=== PATIENT | male | born 1975 | race Caucasian/White ===

== ENCOUNTER → 2018-11-06 | Outpatient (CLI) | payer OTHER | LOC: M OUTALCOH 08:42 | PROVIDERS: ATTEND Psychiatry & Neurology Psychiatry | DX: Z03.89 Encounter for observation for other suspected diseases and conditions ruled out (principal) ==

== ENCOUNTER 2018-11-13 09:52 | Outpatient (RCR) | payer OTHER | END 2018-11-17 | LOC: M OUTALCOH 09:52 | PROVIDERS: ATTEND Psychiatry & Neurology Psychiatry | DX: Z03.89 Encounter for observation for other suspected diseases and conditions ruled out (principal) ==

== ENCOUNTER 2018-12-31 02:15 | Emergency (ER) | payer BC, OTHER ==
[~2018-12-31] VITALS: Ht 188 cm; Wt 110.0 kg
[2018-12-31] MEDS ORDERED: TETANUS/DIPHTHERIA TOX ADSORB ADULT 0.5ML SYR/VIAL (90714) IM ONE (03:00)
--- NOTE | 2018-12-31 03:24 | REPVR ---
EXAM: CT Head Without Contrast EXAM DATE/TIME: 12/31/2018 2:34 AM CLINICAL HISTORY: 43 years old, male; Injury or trauma; Fall; Additional info: Loc/fall/head lac TECHNIQUE: Imaging protocol: Axial computed tomography images of the head without contrast. Radiation optimization: All CT scans at this facility use at least one of these dose optimization techniques: automated exposure control; mA and/or kV adjustment per patient size (includes targeted exams where dose is matched to clinical indication); or iterative reconstruction. COMPARISON: No relevant prior studies available. FINDINGS: Brain: Normal. No hemorrhage. Unremarkable white matter. No mass effect. Ventricles: Normal. No ventriculomegaly. Bones/joints: Unremarkable. No acute fracture. Sinuses: Left ethmoid sinus mucosal thickening. Mastoid air cells: Visualized mastoid air cells are well aerated. No mastoid effusion. Soft tissues: Unremarkable. IMPRESSION: 1. Mild left ethmoid sinus disease. 2. Otherwise negative noncontrast head CT. Electronically signed by: Manjit Sanchez On 12/31/2018 03:24:23 AM
[2018-12-31] MEDS ORDERED: LIDOCAINE W/EPINEPHRINE 1% 20ML VIAL As Ordered ONE (04:40)
[2018-12-31] MEDS ORDERED: LIDOCAINE W/EPINEPHRINE 1% 20ML VIAL SC ONE (04:45)
[2018-12-31 05:14] VITALS: BP 138/80
== END 2018-12-31 05:17 | disposition home or self-care (01) ==
LOC: M ED 02:15
DX: S01.01XA Laceration without foreign body of scalp, initial encounter (principal); W01.0XXA Fall on same level from slipping, tripping and stumbling without subsequent striking against object, initial encounter; Y92.012 Bathroom of single-family (private) house as the place of occurrence of the external cause

== ENCOUNTER 2020-06-11 01:52 | Inpatient (IN) | payer OTHER, BC ==
[~2020-06-11] VITALS: Ht 188 cm; Wt 108.2 kg
[2020-06-11 03:14] LABS: HEMATOCRIT 43.7 % (42.0-52.0); HEMOGLOBIN 15.4 g/dl (13.5-17.5); MEAN CORPUSCULAR HEMOGLOBIN 30.7 pg (27.0-33.0); MEAN CORPUSCULAR HGB CONC 35.2 g/dl (32.0-36.5); MEAN CORPUSCULAR VOLUME 87.2 fl (80.0-96.0); PLATELET COUNT, AUTOMATED 207 10^3/uL (150-450); RED BLOOD COUNT 5.01 10^6/uL (4.30-6.10); WHITE BLOOD COUNT 5.9 10^3/uL (4.0-10.0)
[2020-06-11 03:44] LABS: ACETAMINOPHEN LEVEL < 2.0 UG/ML (10.0-30.0); ALBUMIN 3.8 GM/DL (3.2-5.2); ALT/SGPT 35 U/L (12-78); BILIRUBIN,DIRECT 0.1 MG/DL (0.0-0.2); BILIRUBIN,TOTAL 0.5 MG/DL (0.2-1.0); BLOOD UREA NITROGEN 10 MG/DL (7-18); CALCIUM LEVEL 8.2 MG/DL (8.5-10.1); CARBON DIOXIDE LEVEL 25 MEQ/L (21-32); CHLORIDE LEVEL 104 MEQ/L (98-107); CREATININE FOR GFR 0.98 MG/DL (0.70-1.30); ETHYL ALCOHOL (ETHANOL) 0.185 % (0.000-0.010); GLOMERULAR FILTRATION RATE > 60.0 (>60); GLUCOSE, FASTING 93 MG/DL (70-100); POTASSIUM SERUM 3.9 MEQ/L (3.5-5.1); SALICYLATE LEVEL < 1.7 MG/DL (5.0-30.0); SODIUM LEVEL 138 MEQ/L (136-145); TOTAL PROTEIN 6.9 GM/DL (6.4-8.2)
[2020-06-11 03:46] LABS: AMPHETAMINES LEVEL URINE NEGATIVE (NEGATIVE); BARBITURATES URINE NEGATIVE (NEGATIVE); BENZODIAZEPINES URINE NEGATIVE (NEGATIVE); CANNABINOIDS URINE NEGATIVE (NEGATIVE); COCAINE METABOLITE URINE NEGATIVE (NEGATIVE); METHADONE URINE NEGATIVE (NEGATIVE); OPIATES URINE NEGATIVE (NEGATIVE); PHENCYCLIDINE URINE NEGATIVE (NEGATIVE)
[2020-06-11] MEDS: THIAMINE 100 MG TAB PO SCH ×2 (09:00→21:00)
[2020-06-11] MEDS ORDERED: LORazepam 2 MG TAB PO PRN (13:45)
[2020-06-11] MEDS ORDERED: MOM 30ML SUSPENSION UDC PO PRN (13:45)
[2020-06-11] MEDS ORDERED: OLANZapine ORAL DISINTEGRATING TAB 5MG PO PRN (13:45)
[2020-06-11] MEDS ORDERED: ACETAMINOPHEN TAB 650MG DOSE (2X325MG) PO PRN (13:45)
[2020-06-11] MEDS ORDERED: MAALOX 30 ML SUSP *UDC PO PRN (13:45)
[2020-06-11] MEDS ORDERED: LORazepam 1 MG TAB PO STA (13:51)
[2020-06-11 16:35] VITALS: BP 154/97
[2020-06-11 16:41] VITALS: BP 154/97
[2020-06-11] MEDS: FOLIC ACID 1 MG TAB PO SCH (17:10)
[2020-06-11] MEDS: MULTIVITAMINS/MINERALS THERAP 1 TAB PO SCH (17:10)
[2020-06-12 01:00] VITALS: BP 145/92
[2020-06-12 06:41] VITALS: BP 148/96
[2020-06-12 06:43] VITALS: BP 148/96
[2020-06-12] MEDS: THIAMINE 100 MG TAB PO SCH ×2 (09:00→22:28)
[2020-06-12] MEDS: FOLIC ACID 1 MG TAB PO SCH (09:00)
[2020-06-12] MEDS: MULTIVITAMINS/MINERALS THERAP 1 TAB PO SCH (09:00)
[2020-06-12 17:35] VITALS: BP 158/90
[2020-06-12 22:53] VITALS: BP 140/82
[2020-06-13 06:30] VITALS: BP 146/90
[2020-06-13] MEDS: FOLIC ACID 1 MG TAB PO SCH (09:00)
[2020-06-13] MEDS: THIAMINE 100 MG TAB PO SCH (09:00)
[2020-06-13] MEDS: MULTIVITAMINS/MINERALS THERAP 1 TAB PO SCH (09:00)
--- NOTE | 2020-06-13 16:45 | HPEPDOC ---
General Date of Admission Jun 11, 2020 at 13:45 Date of Service: Jun 13, 2020 Chief Complaint The patient is a 45-year-old male admitted with a reason for visit of Unspecified Depressive Do. Source: Patient History of Present Illness 45 year old male with PMH of morbid obesity s/p gastric bypass surgery was admitted to [facility] for unspecified depression. He was admitted after he made com ments about hanging himself after he got into an argument with his girlfriend. He did admit that he had a few drinks at that time. He is being medically examined today. Today he denies any complaints. He says his blood pressures have been running high as he is int he [facility]. Home Medications No Active Prescriptions or Reported Meds Allergies Coded Allergies: No Known Allergies (Unverified , 12/31/18) Past Medical History Medical History H/o Morbid obesity s/p Gastric bypass surgery 2016 h/o Hypertension H/o HLD Lasik surgery Family History Significant Family History: Cancer (Mother with lung cancer with bone mets.) Social History * Smoker: non-smoker Alcohol: occationally (about 1-2 times/ week) Drugs: denies A-FIB/CHADSVASC A-FIB History Current/History of A-Fib/PAF?: No Review of Systems Constitutional: Denies: Chills, Fever, Night Sweats Eyes: Denies: Pain, Vision change ENT: Denies: Head Aches, Ear Pain, Dysphagia Skin: Denies: Rash, Lesions, Breakdown Pulmonary: Denies: Dyspnea, Cough Cardiovascular: Denies: Chest Pain, Palpitations, Orthopnea, Paroxysmal Noc. Dyspnea, Lt Headedness Gastrointestinal: Denies: Nausea, Vomiting, Abdominal Pain, Diarrhea Genitourinary: Denies: Dysuria, Frequency, Incontinence, Retention Hematologic: Denies: Bruising, Bleeding Excessively Musculoskeletal: Denies: Neck Pain, Back Pain, Joint Pain, Muscle Pain, Spasms Physical Examination General Exam: Positive: Alert, Cooperative, No Acute Distress Eye Exam: Positive: PERRLA, Conjunctiva & lids normal, EOMI; Negative: Sclera icteric ENT Exam: Positive: Atraumatic, Mucous membr. moist/pink, Pharynx Normal Neck Exam: Positive: Supple; Negative: JVD, thyromegaly Chest Exam: Positive: Clear to auscultation, Normal air movement Heart Exam: Positive: Rate Normal, Regular Rhythm, Normal S1, Normal S2; Negative: Murmurs, Rubs Abdomen Exam: Positive: Normal bowel sounds, Soft; Negative: Tenderness, Hepatospenomegaly Extremity Exam: Positive: Normal pulses; Negative: Clubbing, Cyanosis, Edema Neuro Exam: Positive: Normal Gait, Normal Speech, Cranial Nerves 3-12 NL, Reflexes 2+ Vital Signs Vital Signs Date Time Temp Pulse Resp B/P (MAP) Pulse Ox O2 Delivery O2 Flow Rate FiO2 06/13/20 06:30 96.5 95 18 146/90 (108) 100 Room Air Assessment/Plan 45 year old male with PMH of morbid obesity s/p gastric bypass surgery was admitted to [facility] for unspecified depression. He did admit that he had a few dr inks at that time. He is being medically examined today. Depression as per psychiatry Hypertension will start on amlodipine at HS. Plan / VTE VTE Prophylaxis Ordered?: No (freely ambulatory) RAJESH HANLEY MD Jun 13, 2020 16:45
[2020-06-13 18:26] VITALS: BP 136/98
[2020-06-13 21:00] VITALS: BP 148/90
[2020-06-13] MEDS ORDERED: amLODIPine 5 MG TAB PO SCH (21:00)
[2020-06-14 06:53] VITALS: BP 138/82
--- NOTE | 2020-06-14 12:37 | MHIPN ---
DATE: 06/13/2020 VITAL SIGNS: Blood pressure 146/90, pulse 95, temperature 96.5. CHIEF COMPLAINT: Says feels good. SUBJECTIVE: Seen for followup. Indicates feels good but he could not sleep, only a few hours, puts it down to the bed. Moods are good. Says has spoken with his partner, and that has gone well. MENTAL STATUS EXAMINATION: Neat, cooperative, no agitation, is coherent, affect fairly broad. No evidence of any thoughts of harming himself or anyone else, nor of any psychosis. Cognition grossly intact. Judgment good, insight is improved. ASSESSMENT: Adjustment disorder with disturbance of emotions and conduct. Consider alcohol use disorder. PLAN: Continue current care, observations, obtain collateral information. There is no indication, in my opinion, for any scheduled psychotropic. Encourage participation in activities in the unit. I would suggest that he is considered for discharge within the next 24 hours or so, with followup. Further recommendations will be made depending on the clinical picture, when he is seen by the assigned clinician. CASPER
--- NOTE | 2020-06-14 13:44 | MHDSPDOC ---
[facility] Discharge Summary Discharge Summary DATE OF ADMISSION: Jun 11, 2020 at 13:45 DATE OF DISCHARGE: June 14, 2020 at 1326 DISCHARGE DIAGNOSES: Alcohol Use Disorder Alcohol Intoxication Alcohol Induced Depressive Disorder REASON FOR ADMISSION: Patient is a 45 year old Single, Employed, Domiciled, Male who made a suicidal statement while under the influence of alcohol. His Blood Alcohol Content was 0.185 CONSULTANTS INVOLVED: See Medical H + P by Medical Provider TREATMENT AND PROGRESS ON THE UNIT : Patient was admitted to the [facility] on a 9.39 legal status he was afforded the following treatment modalities: 1) Individual Therapy 2) Group Therapy 3) Medication Management 4) Milieu Therapy 5) Safe Environment HOSPITAL COURSE: Patient admitted to [facility] for observation of suicidal ideation. Over the weekend, there were no statements by the patient about any continued thoughts of self-harm, denied depression or anxiety. He was not interested in medications. DISCHARGE ASSESSMENT: Patient denies suicidal ideation. He denies any thought of harming others. He denies depression, anxiety, abnormal psychotic symptoms. He states, "I know that I did something stupid. I got into an argument with her and I thought if I did something, she would come back. But the police came." He reports no past history of depression or anxiety. States that he has not had any suicidal/homicidal ideation, planning or intent in the past, denies auditory/visual/tactile hallucinations, psychotic and delusional symptoms, jacy or obsessive-compulsory thinking. Received call this morning from on-call provider who saw patient on Sunday, he felt patient was appropriate on the unit and had no behavioral issues. Provider advocated for his discharge today. MENTAL STATUS EXAMINATION ON DISCHARGE: 5 year old Single, Employed, Domiciled, Male who made a suicidal statement while under the influence of alcohol. He appears his stated age, is calm and cooperative in the interview. He is dressed appropriately, hygiene and grooming is good. Eye contact is good and no psychomotor agitation or retardation noted. Speech: Is normal rate, tone and volume Language skills are intact Thought processes including: linear and goal oriented Thought content: denies depression, suicidal/homicidal ideation, planning or intent. He is not anxious, denies abnormal psychotic symptoms Abstract reasoning, and computation: Fair Description of associations: None notes, patient denies Description of abnormal or psychotic thoughts: None notes, patient denies Judgment: fair Insight: fair Orientation: alert and oriented to persona, place, time and situation Recent and remote memory: intact Attention span and concentration: fair Language: expansive Fund of knowledge: good Mood: "I am anxious to go home. I need to get to work Affect: constricted, n ervous MEDICATIONS ON DISCHARGE: No Medication PLAN/FOLLOWUP ARRANGEMENTS: Patient declined Outpatient Mental Health appointments. The amount of time spent in the coordination of care for this patient was approximately 20 minutes. Vital Signs/I&Os Vital Signs Date Time Temp Pulse Resp B/P (MAP) Pulse Ox O2 Delivery O2 Flow Rate FiO2 06/14/20 06:53 96.7 74 16 138/82 (100) 06/13/20 18:26 99 Room Air Medications No Active Prescriptions or Reported Meds Allergies Coded Allergies: No Known Allergies (Unverified , 12/31/18) MARILU NARVAEZ NP Jun 14, 2020 13:44
--- NOTE | 2020-06-14 14:30 | MHHPEPDOC ---
General Date Of Admission: Jun 11, 2020 Legal Status: 9.39 Chief Complaint Per ED report: Patient was inebriated and made suicidal statement. He was a 9.41 to [employer] after he texted his girlfriend and stated he was going to hang himself. History of Present Illness HISTORY OF THE PRESENT ILLNESS: Patient is a 45 -year-old Single, Employed, Domiciled , male, who was brought to the ED on a 9.41 legal status after he made a suicidal statement to his girlfriend. Patient reports that he was drinking and had an argument with his girlfriend. He does not remember what the argument was about. He states that he said (in the heat of the argument) that he "would just hang himself." He admits to going to the garage and obtaining a rope from his car and tying it to a rafter and but then took it down later. States that he is on vacation this week and drank more than he normally does. He denies a mental health history. Per collateral, his girlfriend Jenna reported that patient was drinking and they argued and she left the home. He texted her and stated that he didn't want to be around anymore and called her stating he was going to the garage and getting a rope to hang himself. She then hung up and called the police. When she returned home, the police were present. She reports that patient has never made suicidal statements in the past and does not have a mental health issue. Psychiatric Review of Systems Depression (2 or more weeks): denies Rose (4 or more days of): denies Psychosis: denies PTSD: denies Anxiety: denies Past Psychiatric History Previous Psychiatric Diagnosis: Denies Previous Psychiatric Admissions: This is first admission Suicide Attempts: No past attempts, made suicidal statement and gesture on this occasion while inebriated Psychiatric Follow-up: None Psychiatric medications: Denies Past Medical History Medical Problems H/o Morbid obesity s/p Gastric bypass surgery 2017 h/o Hypertension H/o HLD Lasik surgery Social History Smoker: non-smoker Alcohol: occationally (about 1-2 times/ week) Drugs: denies Head Injury: No Seizures: No Hospitalizations: Yes Surgeries: Yes Family Medical/Psychiatric HX Medical Problems Cancer (Mother with lung cancer with bone mets.) Psychiatric Disorders: No Addiction: No Suicide Attemps/Completions: No Addiction History alcohol (1-2 times/week. 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 Social Support: Girlfriend Legal: None Marital: None Mental Status Examination General Appearance: well groomed, appears stated age, hospital scubs/clothing Build: other (tall and muscular) Demeanor: guarded Eye Contact: average Activity: average Behavior: cooperative Speech: clear, normal volume, reg/rate,rhythm,volume Mood: euthymic Mood "I made a mistake, I said something stupid" Affect: full Thought Process: logical/linear Thought Content (Delusions): none reported Thought Content (Aggressive): none reported Perception (Hallucinations): none reported Perception (Other): none reported Cognition (Impairment of): none reported Oriented: Awake, Alert, Oriented times three Insight: good Judgment: Good Psychosis: Denies Diagnoses Alcohol Induced Depressive Disorder Alcohol Use Disorder Alcohol Intoxication A-FIB/CHADSVASC A-FIB History Current/History of A-Fib/PAF?: No Current PO Anticoag Therapy: No Age/Risk Factor Scoring CHADSVASC: CHADSVASC Response (Comments) Value Age Risk Factor Age < 65 years old 0 Gender Risk Factor Male 0 Hx of CHF No 0 Hx of HTN No 0 Hx of Stroke/TIA/or VTE No 0 Hx of Diabetes No 0 Hx of Vascular Disease No 0 Total 0 Treatment Treatment ordered: NONE Assessment Patient currently denies suicidal ideation, planning or intent He denies depression or anxiety and states, "I was drunk and stupid and made a statement I should not have said. I was trying to get my girlfriend to come back." Patient to be admitted to unit on [facility] on a 9.39 legal status. We will observe for suicidal ideation, verbalization, continued threats of self-harm He will be afforded medications for any mental health symptoms but was declining medications. He states, "I can't stay, I have to go to work. I am not staying the weekend" Reinforced that he will be discharged when he is stable. Initial Treatment Plan 1. Patient was admitted on a [9.39] status. 2. Complete history was obtained. 3. With patients permission, family will be contacted and database will be expanded. 4. Patients medication regimen will be reviewed and changed accordingly. 5. Patient will be provided with protected environment. 6. Patient will be treated with individual, group, and milieu therapies. 7. Patient will receive supportive psych-education. 8. Discharge planning will commence immediately. 9. Outpatient follow-up treatment will be strongly recommended. 10. The initial treatment plan will focus initially on: * Depression. * Risk for suicide. ESTIMATED LENGTH OF STAY: 1-3 DAYS. TIME SPENT COUNSELING AND COORDINATING INITIAL CARE: 30 minutes. Vital Signs Vital Signs Date Time Temp Pulse Resp B/P (MAP) Pulse Ox O2 Delivery O2 Flow Rate FiO2 06/14/20 06:53 96.7 74 16 138/82 (100) 06/13/20 18:26 99 Room Air Medications No Active Prescriptions or Reported Meds Allergies Coded Allergies: No Known Allergies (Unverified , 12/31/18) MARILU NARVAEZ NP Jun 14, 2020 14:01
--- NOTE | 2020-06-15 14:18 | MHHPE ---
DATE: 06/11/2020 VITAL SIGNS: Blood pressure 158/90, pulse 99, temperature 98.7. CHIEF COMPLAINT: Has been drinking, wanted to hang himself. SUBJECTIVE: He is 45 years old, he lives with his girlfriend Jenna, they have a 2-year-old child. He has a couple of children from his previous marriage, the older one is 18, the other one younger, they live with their mother. The patient says he and his girlfriend had had an argument the other day, he does not remember what the argument was about, and she left, he says he wanted her to come back, and he went to his car, got a rope that he has there (says he has ropes there with a fishing magnet attached to it), took the rope to his garage, and put it up, but then realized what he was doing, says stopped. Came into the house, by then the girlfriend had apparently called the police, who were there, he says all this took place within half an hour or so, and he was brought here. He was seen in the emergency room (ER), says waited for quite a while, was seen by the clinicians there, and then was told he was being admitted. He says he was quite upset, and felt angry, but did not think that he needed admission. He says he has spoken with his girlfriend since then, says has generally been doing well, and does not think that he would have gone for the rope if he had not been drinking. Says they generally get along well, moods have been good. Says sleep and appetite are good. 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 Says work has been going well. Indicates that he and his girlfriend, if they have a disagreement, usually talk about it. Says had no desires of taking his own life, denies any at present. Says takes about 8-10 beers or so after his shift about once a week, with other weeks when he does not use any. He does not think that he drinks excessively. Denies that his girlfriend thinks that he drinks a lot, though does say that he does not plan to drink as much, possibly cut it down, or eliminate it. Denies feeling depressed, or pervasively anxious. He does not think he would have thought of hanging himself if he was not drinking. He says he and his girlfriend get along, he gets along with his children, and is close to his 18-year-old. Says is also comfortable with his own company, has friends, but is not very close with them, says that is generally him. PAST PSYCHIATRIC HISTORY: None formally. No history of inpatient hospitalizations nor suicide attempts. Says was given medicine for anxiety for a brief while, this was in the context of his first marriage. Had an evaluation for alcohol more than a year ago, had a DWI. Says does not have any guilt about his drinking, does not tend to get annoyed when anybody mentions it, and denies any history of eye openers. MEDICAL HISTORY: He does not have any major medical difficulties as far as I am aware. SOCIAL HISTORY: Raised locally, he is an only child, says he had a good childhood, mother 20 years ago this month. Says gets along with his father, and that they were supposed to go hunting this weekend. First marriage lasted a few years, says they get along reasonably well, for the sake of the children. He and his current partner have been together for a few years, they have a young child, he says they generally get along. No head injuries, though he had had a fall last year or so, after he had returned from a hockey game, per the record. MENTAL STATUS EXAMINATION: He is neat, cooperative, he is tall, he is well- built. There is no agitation, no psychomotor retardation, he is coherent, affect is reactive. Denies any thoughts of harming himself or anyone else, no evidence of any psychosis. Cognition is grossly intact. Intellect average. Judgment and insight fair. ASSESSMENT: Adjustment disorder with disturbance of emotions and conduct. Consider alcohol use disorder, it is a possibility. No evidence of mood disorder. PLAN: He is admitted to the inpatient psychiatry unit and placed on relevant precautions. We will look at obtaining collateral information. It is quite possible that his drinking had clouded his judgment. He will be involved in individual, group, and milieu therapy. He will be discharged with followup once he is stable. I do not anticipate him staying longer than 3 days or so. There is a possibility he may be minimizing his difficulties, and collateral information would help clarify that. In my opinion, there is no indication for a scheduled psychotropic. The assessment took 30 minutes. CASPER
== END 2020-06-14 12:25 | disposition home or self-care (01) | DRG 897 ==
LOC: M ED 01:52 → M ED INP 13:45 → M PSY 14:40
PROVIDERS: ADMIT Psychiatry & Neurology Addiction Medicine; ATTEND Psychiatry & Neurology Psychiatry
DX: F10.14 Alcohol abuse with alcohol-induced mood disorder (principal); I10 Essential (primary) hypertension; F10.129 Alcohol abuse with intoxication, unspecified; Z98.84 Bariatric surgery status